=== PATIENT | male | born 1995 | race Caucasian/White ===

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

== ENCOUNTER 2017-05-14 21:34 | Emergency (ER) | payer OTHER ==
[~2017-05-14] VITALS: Ht 177.8 cm; Wt 53.2 kg
[~2017-05-14 21:34] MED LIST: PERCOCET 5/31 TABLET PO
[2017-05-14 22:29] LABS: HEMATOCRIT 42.7 % (38.0-50.0); HEMOGLOBIN 15.5 G/DL (12.5-16.6); MCH 30.5 PG (29.0-34.0); MCHC 36.3 G/DL (30.0-36.0); MCV 83.9 FL (86-99); PLATELET COUNT 329 K/uL (156-360); RBC DIS.WIDTH-CV 11.4 % (11.8-14.6); RBC DIS.WIDTH-SD 34.9 % (39-53); RED BLOOD COUNT 5.09 M/uL (4.00-5.50)
[2017-05-14 22:39] LABS: CHLORIDE 102 mEq/L (99-109); POTASSIUM 3.9 mEq/L (3.7-5.4); SODIUM 143 mEq/L (136-147)
[2017-05-14 22:41] LABS: GLUCOSE 95 mg/dL (70-99)
[2017-05-14 22:45] LABS: GFR ESTIMATE (CALCULATED) > 59 mL/min/ (58.99-99999); UREA NITROGEN (BUN) 15 mg/dL (9-23)
[2017-05-14 22:55] LABS: TROP-I INTERPRETATION NEGATIVE; TROPONIN-I < 0.01 ng/mL (0.0-0.30)
[2017-05-15 01:29] LABS: TROP-I INTERPRETATION NEGATIVE; TROPONIN-I < 0.01 ng/mL (0.0-0.30)
[2017-05-15] MEDS ORDERED: MOTRIN800 MG PO (02:14)
[2017-05-15] MEDS ORDERED: VENTOLIN HFA18 GM IH (02:19)
[2017-05-15 02:29] VITALS: BP 126/91
== END 2017-05-15 02:31 | disposition home or self-care (01) ==
LOC: EME 21:34
PROVIDERS: Physician Assistant
DX: R07.89 Other chest pain (principal); F17.200 Nicotine dependence, unspecified, uncomplicated; R03.0 Elevated blood-pressure reading, without diagnosis of hypertension; J98.01 Acute bronchospasm
CPT/HCPCS: 71046; 80048; 84484; 85027; 93005; 94664; 99281; 99284